=== PATIENT | male | born 1990 | race Caucasian/White ===

== ENCOUNTER 2019-11-20 09:35 | Emergency (ER) | payer BC ==
--- NOTE | 2019-11-20 10:40 | EDM.PDOC ---
ED HPI GENERAL MEDICAL PROBLEM - General Chief Complaint: General Stated Complaint: RT HAND Time Seen by Provider: 11/20/19 10:20 Source of Information: Reports: Patient History Limitations: Reports: No Limitations - History of Present Illness INITIAL COMMENTS - FREE TEXT/NARRATIVE: Patient presents to ER with complaints of a sore throat, chest discomfort and a sore finger. Patient started noting discomfort in his throat about 4-5 days ago after swallowing an Racheal pill and felt "like it went down sideways". Has had difficulty swallowing since that time. Relates had a history of "lymph node infection 3 years ago and it feels somewhat like that again". Also complains of episodes of chest pressure in the left anterior region. He states episodes last about 2-3 minutes. No shortness of breath, no nausea. Has been experiencing more reflux over the last week. Takes an occasional TUMS. 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 Also has complaints of index finger pain. Was firing his gun in training and trigger jammed his nail. Has a lot of pressure and bleeding under the nail bed. Onset: Gradual Duration: Day(s):, Waxing/Waning Location: Reports: Chest, Upper Extremity, Right Quality: Reports: Ache Severity: Mild Associated Symptoms: Reports: Chest Pain. Denies: Confusion, Cough, Fever/Chills, Loss of Appetite, Nausea/Vomiting, Shortness of Breath Past Medical History Psychiatric History: Reports: ADHD, Anxiety Endocrine/Metabolic History: Reports: Hypothyroidism Social & Family History - Tobacco Use Smoking Status *Q: Never Smoker ED ROS GENERAL - Review of Systems Review Of Systems: See Below Constitutional: Denies: Fever, Chills, Malaise, Weakness, Fatigue, Decreased Appetite HEENT: Reports: Throat Pain, Throat Swelling. Denies: Ear Pain, Sinus Problem, Vertigo Respiratory: Denies: Shortness of Breath, Cough Cardiovascular: Reports: Chest Pain. Denies: Edema, Lightheadedness Endocrine: Denies: Fatigue GI/Abdominal: Denies: Abdominal Pain, Nausea, Vomiting : Reports: No Symptoms Musculoskeletal: Reports: Hand Pain Skin: Reports: Bruising Neurological: Reports: No Symptoms ED EXAM, GENERAL - Physical Exam Exam: See Below Exam Limited By: No Limitations General Appearance: Alert, WD/WN, No Apparent Distress Ears: Normal External Exam, Normal TMs Nose: Normal Inspection, Normal Mucosa, No Blood Throat/Mouth: Normal Inspection, Normal Oropharynx Head: Normocephalic Neck: Normal Inspection, Supple, Non-Tender Respiratory/Chest: No Respiratory Distress, Lungs Clear, Normal Breath Sounds Cardiovascular: Regular Rate, Rhythm GI/Abdominal: Normal Bowel Sounds, Soft, Non-Tender Extremities: Other (hematoma under right index finger nail bed) Neurological: Alert, Oriented Skin Exam: Warm, Dry ED GENERAL MEDICAL PROCEDURES - Additional/Other Procedure(s) Other (Free Text) Procedure(s): Bovie used to right index finger nail bed with good relief of blood. Patient tolerated well. Course - Orders/Labs/Meds Orders: Active Orders 24 hr Category Date Time Status CULTURE STREP A CONFIRMATION [] Stat Lab 11/20/19 09:56 Results STREP SCRN A RAPID W CULT CONF [] Stat Lab 11/20/19 09:56 Results Omeprazole Med 11/20/19 10:45 Active 20 mg PO DAILY Sucralfate [Carafate] Med 11/20/19 11:00 Active 1 gm PO TIDAC Medication Orders Omeprazole (Omeprazole) 20 mg PO DAILY JEMAL Sucralfate (Carafate) 1 gm PO TIDAC JEMAL Labs: Laboratory Tests 11/20/19 Range/Units 09:56 COVID-19 ([facility]) Negative (NEGATIVE) Meds: Medications Generic Name Dose Route Start Last Admin Trade Name Freq PRN Reason Stop Dose Admin Omeprazole 20 mg 11/20/19 10:45 Omeprazole PO DAILY JEMAL Sucralfate 1 gm 11/20/19 11:00 Carafate PO TIDAC JEMAL Discontinued Medications Generic Name Dose Route Start Last Admin Trade Name Freq PRN Reason Stop Dose Admin Al Hydroxide/Mg Hydroxide 30 ml 11/20/19 10:33 11/20/19 10:41 Gi Cocktail PO 11/20/19 10:34 30 ml ONETIME ONE Administration - Re-Assessments/Exams Free Text/Narrative Re-Assessment/Exam: 11/20/19 10:54 Is feeling less discomfort now after GI cocktail Departure - Departure Time of Disposition: 10:55 Disposition: Home, Self-Care 01 Condition: Good Clinical Impression: Gastritis - Discharge Information *PRESCRIPTION DRUG MONITORING PROGRAM REVIEWED*: No *COPY OF PRESCRIPTION DRUG MONITORING REPORT IN PATIENT MÓNICA: No Instructions: Gastritis, Adult, [id number] Forms: ED Department Discharge Additional Instructions: 1. Push fluids 2. [place] diet 3. Sit up for minimum of one hour after eating 4. Start Omeprazole daily 5. Carafate 1 gm three times a day before meals 6. Follow up with primary care provider if persisting discomfort, may need to do a scope procedure - My Orders Last 24 Hours: My Active Orders 11/20/19 09:56 CULTURE STREP A CONFIRMATION [RM] Stat STREP SCRN A RAPID W CULT CONF [] Stat 11/20/19 10:45 Omeprazole 20 mg PO DAILY 11/20/19 11:00 Sucralfate [Carafate] 1 gm PO TIDAC - Assessment/Plan Last 24 Hours: My Active Orders 11/20/19 09:56 CULTURE STREP A CONFIRMATION [RM] Stat STREP SCRN A RAPID W CULT CONF [RM] Stat 11/20/19 10:45 Omeprazole 20 mg PO DAILY 11/20/19 11:00 Sucralfate [Carafate] 1 gm PO TIDAC
[2019-11-20] MEDS: GI Cocktail Oral Solution 30 ML PO ONE (10:41)
[2019-11-20] MEDS: Sucralfate 1 GM Tab PO SCH (11:06)
[2019-11-20] MEDS: Omeprazole 20 MG Cap.CR PO SCH (11:06)
[2019-11-20] MEDS: Omeprazole 20 MG Cap.CR ONE (11:06)
[2019-11-20] MEDS: Sucralfate 1 GM Tab ONE (11:06)
[2019-11-21] MEDS: Take Home: Amoxicillin 875 MG Tab, 2 Tab Pack PO ONE (18:07)
== END 2019-11-20 11:05 | disposition home or self-care (01) ==
LOC: VM.ED 09:35
DX: K29.70 Gastritis, unspecified, without bleeding (principal); Z20.828 Contact with and (suspected) exposure to other viral communicable diseases
CPT/HCPCS: 87081; 87635; 87880; 99284; A9270; U0002

== ENCOUNTER 2019-11-29 21:51 | Emergency (ER) | payer BC ==
--- NOTE | 2019-11-29 22:41 | EDM.PDOC ---
ED HPI GENERAL MEDICAL PROBLEM - General Stated Complaint: CAN'T SWALLOW Time Seen by Provider: 11/29/19 22:25 Source of Information: Reports: Patient - History of Present Illness INITIAL COMMENTS - FREE TEXT/NARRATIVE: Erick is a 29 y/o male who comes to the ER with a sore throat that seems to be getting worse. He was seen here on 11/20/2019 and then was called the next day that his throat cx was +strep and he was treated with Amoxicillin. He still has a day or two left of the meds and is taking it. Today it seems his throat became more painful and he felt like it was swollen. His left ear hurts and he cannot blow his nose due to the pain. - Related Data Allergies Allergy/AdvReac Type Severity Reaction Status Date / Time No Known Allergies Allergy Verified 11/20/19 12:25 Home Meds: Home Meds Fexofenadine [Racheal] 60 mg PO DAILY 11/20/19 [History] Levothyroxine 150 mcg PO ACBREAKFAST 11/20/19 [History] Methylphenidate HCl [Methylphenidate ER] 18 mg PO DAILY 11/20/19 [History] Naproxen Sodium [Aleve] 220 mg PO BID PRN 11/20/19 [History] Clindamycin HCl 300 mg PO TID #30 capsule 11/29/19 [Rx] methylPREDNISolone [Medrol] 4 mg PO ASDIRECTED #21 dospk 11/29/19 [Rx] Past Medical History Psychiatric History: Reports: ADHD, Anxiety Endocrine/Metabolic History: Reports: Hypothyroidism Review of Systems - Review of Systems Review Of Systems: See Below Constitutional: Reports: Chills, Fever Eyes: Reports: No Symptoms Ears: Reports: Pain (Left ear pain) Nose: Reports: Congestion Mouth/Throat: Reports: Throat Swelling, Painful Swallowing Respiratory: Reports: No Symptoms Cardiovascular: Reports: No Symptoms GI/Abdominal: Reports: No Symptoms Genitourinary: Reports: No Symptoms Musculoskeletal: Reports: No Symptoms Skin: Reports: No Symptoms Neurological: Reports: No Symptoms Psychiatric: Reports: No Symptoms ED EXAM, GENERAL - Physical Exam Exam: See Below Exam Limited By: No Limitations General Appearance: Alert, WD/WN, No Apparent Distress (Adult male) Eye Exam: Bilateral Eye: PERRL Ears: Normal External Exam, Normal Canal, Hearing Grossly Normal, Normal TMs Ear Exam: Left Ear: TM Dull (left pre-auricular region with palpation) Nose: Normal Inspection, Normal Mucosa Throat/Mouth: Normal Lips, Normal Teeth, Normal Voice, Other (Tonsils 2+ and erythematous, note large amount of saliva on posterior pharyngeal region) Head: Atraumatic, Normocephalic Neck: Lymphadenopathy (R) (left anterior cervical) Respiratory/Chest: No Respiratory Distress, Lungs Clear, Chest Non-Tender Cardiovascular: Normal Peripheral Pulses, Regular Rate, Rhythm GI/Abdominal: Normal Bowel Sounds, Soft (Male) Exam: Deferred Rectal (Males) Exam: Deferred Back Exam: Normal Inspection Extremities: Normal Inspection, Normal Range of Motion, Normal Capillary Refill Neurological: Alert, Oriented, CN II-XII Intact, No Motor/Sensory Deficits Psychiatric: Normal Affect, Normal Mood Skin Exam: Warm, Dry, Intact, Normal Color, No Rash Lymphatic: No Adenopathy Course - Vital Signs Text/Narrative:: 2224 The patient was seen by the [facility]. RST and COVID ordered. 2334 Labs reviewed. RST neg, Cx pending. COVID neg. Results discussed with patient. Will give Dexamethasone 8mg po to help with the inflammation and then have him stop the Amoxicillin and start a course of Clindamycin to see if that helps. Will also start on Medrol DosePack. Patient in agreement. He was given discharge instructions and left the ER in stable condition. - Orders/Labs/Meds Orders: Active Orders 24 hr Category Date Time Status CULTURE STREP A CONFIRMATION [] Stat Lab 11/29/19 22:25 Results STREP SCRN A RAPID W CULT CONF [] Stat Lab 11/29/19 22:25 Results Labs: Laboratory Tests 11/29/19 Range/Units 23:00 SARS CoV-2 RNA Rapid [facility]CA Negative (NEGATIVE) Departure - Departure Time of Disposition: 23:42 Disposition: Home, Self-Care 01 Condition: Good Clinical Impression: Pharyngitis - Discharge Information *PRESCRIPTION DRUG MONITORING PROGRAM REVIEWED*: Not Applicable *COPY OF PRESCRIPTION DRUG MONITORING REPORT IN PATIENT MÓNIAC: Not Applicable Prescriptions: Clindamycin HCl 300 mg PO TID #30 capsule methylPREDNISolone [Medrol] 4 mg PO ASDIRECTED #21 dospk Instructions: Pharyngitis Referrals: Megan Jay PA [Primary Care Provider] - Additional Instructions: -Stop Amoxicillin -Clindamycin 300mg oral 3x daily f0r 10 days #10(Rx) -Medrol Dose Pack 4 mg oral as directed #21(Rx) -Continue daily use of Racheal -Use Acetaminophen or ibuprofen as needed for pain -Follow up with your PCP if symptoms are not improving or you have any further concerns -Return to the ER as needed - My Orders Last 24 Hours: My Active Orders 11/29/19 22:25 CULTURE STREP A CONFIRMATION [RM] Stat STREP SCRN A RAPID W CULT CONF [RM] Stat - Assessment/Plan Last 24 Hours: My Active Orders 11/29/19 22:25 CULTURE STREP A CONFIRMATION [RM] Stat STREP SCRN A RAPID W CULT CONF [RM] Stat Assessment:: 1)Pharyngitis 2)COVID negative Plan: -Stop Amoxicillin -Clindamycin 300mg oral 3x daily f0r 10 days #10(Rx) -Medrol Dose Pack 4 mg oral as directed #21(Rx) -Continue daily use of Racheal -Use Acetaminophen or ibuprofen as needed for pain -Follow up with your PCP if symptoms are not improving or you have any further concerns -Return to the ER as needed
[2019-11-29] MEDS ORDERED: Dexamethasone 4 MG/ML 5 ML MDV PO ONE ×2 (23:41→23:57)
[2019-11-30] MEDS ORDERED: Dexamethasone 4 MG/ML SDV ONE (00:07)
== END 2019-11-30 00:07 | disposition home or self-care (01) ==
LOC: VM.ED 21:51
DX: J02.9 Acute pharyngitis, unspecified (principal); E03.9 Hypothyroidism, unspecified; F90.9 Attention-deficit hyperactivity disorder, unspecified type; Z79.899 Other long term (current) drug therapy; Z20.828 Contact with and (suspected) exposure to other viral communicable diseases
CPT/HCPCS: 87081; 87880-QW; 99283; J1100; U0002

== ENCOUNTER 2022-04-26 07:13 | Emergency (ER) | payer BC ==
[2022-04-26] MEDS ORDERED: Losartan 50 MG Tab PO SCH (09:00)
== END 2022-04-26 08:15 | disposition home or self-care (01) ==
LOC: VM.ED 07:13
DX: H60.90 Unspecified otitis externa, unspecified ear (principal); E03.9 Hypothyroidism, unspecified; Z79.899 Other long term (current) drug therapy
CPT/HCPCS: 87651-QW; 99283

== ENCOUNTER 2022-07-01 17:33 | Emergency (ER) | payer OTHER, BC ==
[2022-07-01] MEDS ORDERED: Take Home: Naproxen 500 MG Tab, 4 Tab Pack PO ONE (19:32)
== END 2022-07-01 19:47 | disposition home or self-care (01) ==
LOC: VM.ED 17:33
DX: S40.011A Contusion of right shoulder, initial encounter (principal)
CPT/HCPCS: 73030-RT; 99283; A9270-GY

== ENCOUNTER 2024-02-09 18:50 | Emergency (ER) | payer OTHER, BC | END 2024-02-09 19:45 | disposition home or self-care (01) | LOC: VM.ED 18:50 | DX: S39.012A Strain of muscle, fascia and tendon of lower back, initial encounter (principal); E03.9 Hypothyroidism, unspecified; Z79.890 Hormone replacement therapy; Z79.899 Other long term (current) drug therapy; Y04.0XXA Assault by unarmed brawl or fight, initial encounter | CPT/HCPCS: 72100; 99283 ==

== ENCOUNTER 2024-12-09 23:08 | Emergency (ER) | payer OTHER, BC | END 2024-12-09 23:41 | disposition home or self-care (01) | LOC: VM.ED 23:08 | DX: S00.01XA Abrasion of scalp, initial encounter (principal); S50.311A Abrasion of right elbow, initial encounter; M25.511 Pain in right shoulder; E03.9 Hypothyroidism, unspecified; Z79.890 Hormone replacement therapy; Z79.899 Other long term (current) drug therapy; X58.XXXA Exposure to other specified factors, initial encounter; Y99.0 Civilian activity done for income or pay; Y92.89 Other specified places as the place of occurrence of the external cause | CPT/HCPCS: 99283 ==